=== PATIENT | female | born 1975 ===

== ENCOUNTER 2018-08-14 18:14 | Emergency (ER) | payer SELFPAY ==
[~2018-08-14] VITALS: Ht 160 cm; Wt 81.6 kg
--- OUTSIDE RECORDS SUMMARY | 2018-08-14 18:21 | XMS REPORT ---
Author Author SWETHA BERG Organization [facility] Address [address] [place] [address] Care Team Providers Care Automotive Collision Estimator Name Role Phone SWETHA BERG Unavailable PROBLEMS Unknown Problems ALLERGIES No Known Allergies ENCOUNTERS Encounter Location Date Diagnosis [facility] [id number] [place] [phone] Dec, Ingrown right greater toenail L60.0 [facility] [id number] [place] [phone] Dec, [facility] [id number] [place] [phone] Nov, Toe infection L08.9 [facility] [id number] [place] [phone] Dec, Vaginal itching L29.8 and Candidiasis of female genitalia B37.3 IMMUNIZATIONS No Known Immunizations SOCIAL HISTORY Never Assessed REASON FOR VISIT Pain (acute) right toe-LY Doss PLAN OF CARE Activity Details Follow Up 2 Weeks if not better Reason:toe pain VITAL SIGNS Height 57.6 in 2017-12-22 Weight 121.7 lbs 2017-12-22 Temperature 98.9 degrees Fahrenheit 2017-12-22 Heart Rate 80 bpm 2017-12-22 Respiratory Rate 18 2017-12-22 BMI 25.79 kg/m2 2017-12-22 Blood pressure systolic 126 mmHg 2017-12-22 Blood pressure diastolic 80 mmHg 2017-12-22 MEDICATIONS Medication Instructions Dosage Frequency Start Date End Date Duration Status Keflex 500 mg Orally every 12 hrs 1 capsule 12h Nov, Dec, 07 days Active RESULTS No Results PROCEDURES No Known procedures INSTRUCTIONS MEDICATIONS ADMINISTERED No Known Medications
--- OUTSIDE RECORDS SUMMARY | 2018-08-14 18:21 | XMS REPORT ---
Author Author JOSELIN HORNE Organization [facility] [place] Address [address] [place] [address] Care Team Providers Care Screen Printing Paster Name Role Phone COLEEN JOSELIN Unavailable PROBLEMS Unknown Problems ALLERGIES No Known Allergies ENCOUNTERS Encounter Location Date Diagnosis [facility] [place] [id number] [place] [phone] Dec, Ingrown right greater toenail L60.0 [facility] [place] [id number] [place] [phone] Dec, [facility] [place] [id number] [place] [phone] Nov, Toe infection L08.9 [facility] [id number] [place] [phone] Dec, Vaginal itching L29.8 and Candidiasis of female genitalia B37.3 IMMUNIZATIONS No Known Immunizations SOCIAL HISTORY Never Assessed REASON FOR VISIT Toenail removal ( rt toe) -- nola ceballos, consent signed PLAN OF CARE Activity Details Follow Up prn Reason: Future/Pending Procedure NAIL REMOVAL SINGLE (COMPLETE OR PARTIAL) VITAL SIGNS Height 57.6 in 2018-01-04 Weight 123.7 lbs 2018-01-04 Temperature 97.78 degrees Fahrenheit 2018-01-04 Heart Rate 70 bpm 2018-01-04 Respiratory Rate 18 2018-01-04 BMI 26.21 kg/m2 2018-01-04 Blood pressure systolic 120 mmHg 2018-01-04 Blood pressure diastolic 68 mmHg 2018-01-04 MEDICATIONS No Known Medications RESULTS No Results PROCEDURES Procedure Date Ordered Result Body Site REMOVAL OF NAIL PLATE January 04, 2018 INSTRUCTIONS MEDICATIONS ADMINISTERED No Known Medications
--- OUTSIDE RECORDS SUMMARY | 2018-08-14 18:21 | XMS REPORT ---
Author Author SWETHA BERG Organization [facility] Address [address] [place] [address] Care Team Providers Care Regional Tanker Truck Driver Name Role Phone SWETHA BERG Unavailable PROBLEMS Unknown Problems ALLERGIES No Information ENCOUNTERS Encounter Location Date Diagnosis [facility] [id number] [place] [phone] Dec, Ingrown right greater toenail L60.0 [facility] [id number] [place] [phone] Dec, [facility] [id number] [place] [phone] Nov, Toe infection L08.9 [facility] [id number] [place] [phone] Dec, Vaginal itching L29.8 and Candidiasis of female genitalia B37.3 IMMUNIZATIONS No Known Immunizations SOCIAL HISTORY Never Assessed REASON FOR VISIT check toe, need appt for toenail removal. Appointment scheduled for 01/04 with Jet Resendez, RN PLAN OF CARE VITAL SIGNS MEDICATIONS No Known Medications RESULTS No Results PROCEDURES No Known procedures INSTRUCTIONS MEDICATIONS ADMINISTERED No Known Medications
--- OUTSIDE RECORDS SUMMARY | 2018-08-14 18:21 | XMS REPORT ---
Author Author ABDIAZIZ VIDES [facility] Address [address] [place] [address] Care Team Providers Care Meter Tester Polyphase Name Role Phone ABDIAZIZ VIDES Unavailable PROBLEMS Unknown Problems ALLERGIES No Known Allergies ENCOUNTERS Encounter Location Date Diagnosis [place] [address] [phone] May, [facility] [address] [phone] May, Abdominal bloating R14.0 [place] [address] [phone] Dec, Ingrown right greater toenail L60.0 [place] [id number] [place] [phone] Dec, [place] [id number] [place] [phone] Nov, Toe infection L08.9 [place] [id number] [place] [phone] Dec, Vaginal itching L29.8 and Candidiasis of female genitalia B37.3 IMMUNIZATIONS No Known Immunizations SOCIAL HISTORY Never Assessed REASON FOR VISIT reports feeling bloated et a hard area in her RUG. denies pain...reports burning. been like this for 2 days. denies pain with intercourse. last BM was yesterday et normal for her. also reports this burning comes et goes. did eat a shake yesterday...felt better afterwards. doesnt coorelate this burning with food. PLAN OF CARE Activity Details Follow Up 2 Weeks,prn Reason: VITAL SIGNS Height 57.6 in 2018-06-01 Weight 129.6 lbs 2018-06-01 Temperature 97.3 degrees Fahrenheit 2018-06-01 Heart Rate 80 bpm 2018-06-01 Respiratory Rate 20 2018-06-01 BMI 27.46 kg/m2 2018-06-01 Blood pressure systolic 126 mmHg 2018-06-01 Blood pressure diastolic 74 mmHg 2018-06-01 MEDICATIONS Medication Instructions Dosage Frequency Start Date End Date Duration Status Ranitidine HCl 150 MG Orally Once a day 1 capsule at bedtime 24h May, 30 day(s) Active RESULTS Name Result Date Reference Range UA LONG DIP (IN HOUSE) 2018-06-01 Lot # [id number] Exp date 2018 Clarity clear Color yellow Odor none GLU negative COLE negative KET negative SG 1.020 BLO trace pH 7.5 Protein negative URO 0.2 NIT negative MARIA GUADALUPE negative Lot # [id number] Exp date may 2018 PROCEDURES Procedure Date Ordered Result Body Site URINALYSIS, AUTO, W/O SCOPE Jun 01, 2018 INSTRUCTIONS MEDICATIONS ADMINISTERED No Known Medications MEDICAL (GENERAL) HISTORY Type Description Date Surgical History 2005, 2007 Hospitalization History post surgeries
--- NOTE | 2018-08-14 20:14 | ED Abdominal Pain ---
General Chief Complaint: Abdominal/GI Problems Stated Complaint: STOMACH PAIN Nursing Triage Note: ABDOMINAL PAIN WORSE TODAY STATS ON GOING FOR 3 MONTHS. Sepsis Screen: No Definite Risk Source of Information: Patient Exam Limitations: No Limitations History of Present Illness Date Seen by Provider: Aug 14, 2018 Time Seen by Provider: 20:13 Initial Comments 43-year-old female who presents to the emergency room with complaints of worsening right upper quadrant abdominal pain for the past 3 months. She was seen in May at [facility] and was placed on Nexium for heartburn. She denies any fever, nausea, vomiting, diarrhea, urinary symptoms, or trouble with her bowels. Timing/Duration: Other (3 months.) Location: [facility] Radiation: No Radiation Associated Symptoms: Denies Symptoms Allergies and Home Medications Allergies Coded Allergies: No Known Drug Allergies (Unverified , 08/14/18) Past Wfjzyag-Kzbjvo-Hpnyxp Hx Patient Social History Recent Foreign Travel: No Contact w/Someone Who Travel: No Recent Infectious Disease Expo: No Past Medical History Surgeries: Yes Section Physical Exam Vital Signs Vital Signs - First Documented 08/14/18 18:52 Temp 98.6 Pulse 68 Resp 20 B/P (MAP) 132/76 (94) Pulse Ox 98 O2 Delivery Room Air Capillary Refill : Less Than 3 Seconds Height/Weight/BMI Height: 5'3.00" Weight: 180lbs. oz. 81.705610ip; BMI Method:Estimated Progress/Results/Core Measures Results/Orders Lab Results Laboratory Tests Test 08/14/18 20:10 08/14/18 20:15 Range/Units Urine Color YELLOW Urine Clarity CLEAR Urine pH 6.5 5-9 Urine Specific [place] 1.015 L 1.016-1.022 Urine Protein NEGATIVE NEGATIVE Urine Glucose (UA) NEGATIVE NEGATIVE Urine Ketones NEGATIVE NEGATIVE Urine Nitrite NEGATIVE NEGATIVE Urine Bilirubin NEGATIVE NEGATIVE Urine Urobilinogen NORMAL NORMAL MG/DL Urine Leukocyte Esterase 2+ H NEGATIVE Urine RBC (Auto) NEGATIVE NEGATIVE Urine RBC NONE /HPF Urine WBC 0-2 /HPF Urine Squamous Epithelial Cells 25-50 H /HPF Urine Renal Epithelial Cells NONE /HPF Urine Crystals NONE /LPF Urine Bacteria MODERATE H /HPF Urine Casts NONE /LPF Urine Mucus NEGATIVE /LPF Urine Culture Indicated NO White Blood Count 10.8 4.3-11.0 10^3/uL Red Blood Count 4.64 4.35-5.85 10^6/uL Hemoglobin 12.1 11.5-16.0 G/DL Hematocrit 36 35-52 % Mean Corpuscular Volume 77 L 80-99 FL Mean Corpuscular Hemoglobin 26 25-34 PG Mean Corpuscular Hemoglobin Concent 34 32-36 G/DL Red Cell Distribution Width 14.3 10.0-14.5 % Platelet Count 328 130-400 10^3/uL Mean Platelet Volume 9.9 7.4-10.4 FL Neutrophils (%) (Auto) 78 H 42-75 % Lymphocytes (%) (Auto) 16 12-44 % Monocytes (%) (Auto) 5 0-12 % Eosinophils (%) (Auto) 1 0-10 % Basophils (%) (Auto) 0 0-10 % Neutrophils # (Auto) 8.5 H 1.8-7.8 X 10^3 Lymphocytes # (Auto) 1.7 1.0-4.0 X 10^3 Monocytes # (Auto) 0.6 0.0-1.0 X 10^3 Eosinophils # (Auto) 0.1 0.0-0.3 10^3/uL Basophils # (Auto) 0.0 0.0-0.1 10^3/uL Sodium Level 136 135-145 MMOL/L Potassium Level 3.9 3.6-5.0 MMOL/L Chloride Level 106 98-107 MMOL/L Carbon Dioxide Level 21 21-32 MMOL/L Anion Gap 9 5-14 MMOL/L Blood Urea Nitrogen 11 7-18 MG/DL Creatinine 0.73 0.60-1.30 MG/DL Estimat Glomerular Filtration Rate > 60 BUN/Creatinine Ratio 15 Glucose Level 115 H 70-105 MG/DL Calcium Level 9.8 8.5-10.1 MG/DL Corrected Calcium 9.5 8.5-10.1 MG/DL Total Bilirubin 0.3 0.1-1.0 MG/DL Aspartate Amino Transf (AST/SGOT) 26 5-34 U/L Alanine Aminotransferase (ALT/SGPT) 29 0-55 U/L Alkaline Phosphatase 85 40-136 U/L Total Protein 7.6 6.4-8.2 GM/DL Albumin 4.4 3.2-4.5 GM/DL Amylase Level 73 25-125 U/L Lipase 22 8-78 U/L My Alyssa Shah - SHAHZAD CAMPOS Comprehensive Metabolic Panel (2/16/19 20:10) Lipase (08/14/18 20:10) Amylase (08/14/18 20:10) Ua Culture If Indicated (08/14/18 20:10) Saline Lock/Iv-Start (08/14/18 20:10) Cbc With Automated Diff (08/14/18 20:10) Ct Abdomen/Pelvis W (08/14/18 20:10) Urine Bedside (08/14/18 20:19) Iohexol Injection (Omnipaque 350 Mg/Ml 1 (08/14/18 21:00) Contrast Received (Contrast Received) (08/14/18 21:00) Sodium Chloride Flush (Catheter Flush Sy (08/14/18 21:00) Ns (Ivpb) (Sodium Chloride 0.9% Ivpb Bag (08/14/18 21:00) Medications Given in ED Current Medications Medications Dose Ordered Sig/Kevin Route Start Time Stop Time Status Last Admin Dose Admin Iohexol 100 ml ONCE ONCE IV 08/14/18 21:00 08/14/18 21:01 DC 08/14/18 20:48 100 ML Sodium Chloride 10 ml NEEDED PRN IV 08/14/18 21:00 08/14/18 20:48 10 ML Sodium Chloride 100 ml ONCE ONCE IV 08/14/18 21:00 08/14/18 21:01 DC 08/14/18 20:48 80 ML Vital Signs/I&O 08/14/18 18:52 Temp 98.6 Pulse 68 Resp 20 B/P (MAP) 132/76 (94) Pulse Ox 98 O2 Delivery Room Air Blood Pressure Mean: 94 Progress Progress Note : Time: 22:07 Progress Note I have seen and evaluated the patient. I've informed her of her laboratory and imaging studies. I have consult with Dr. PATETRSON at this time and he wishes to have the patient clear liquid diet and pain medication until he sees the patient in his office on Thursday at 2 PM. The patient agrees with plan of care, plans for discharge, return precautions were given. Departure Impression Primary Impression: Dilated gallbladder Additional Impression: Right upper quadrant pain Disposition: HOME, SELF-CARE Condition: Stable/Unchanged Departure-Patient Inst. Decision time for Depature: 22:08 Referrals: [facility] Primary Care Physician DIOR PATTERSON MD Patient Instructions: Acute Abdomen (Belly Pain), Adult (DC) Add. Discharge Instructions: Take medications as directed. Follow-up with Dr. PATTERSON's office Thursday afternoon at 2 PM. Clear liquid diet until you see Dr. PATTERSON at this appointment. Return back to the emergency room for worsening symptoms or concerns as needed. All discharge instructions reviewed with patient and/or family. Voiced understanding. Scripts Hydrocodone Bit/Acetaminophen (Hydrocodone/Acetaminophen 5/325mg Tablet) 1 Tab Tab 1 EACH PO Q4-6HR PRN for PAIN-MODERATE MDD 10, #14 TAB Prov: SHAHZAD CAMPOS 08/14/18 SHAHZAD CAMPOS Aug 14, 2018 20:14
[2018-08-14 20:24] LABS: BASOPHILS % (AUTO) 0 % (0-10); EOSINOPHILS # (AUTO) 0.1 10^3/uL (0.0-0.3); EOSINOPHILS % (AUTO) 1 % (0-10); HEMATOCRIT 36 % (35-52); HEMOGLOBIN 12.1 G/DL (11.5-16.0); LYMPHOCYTES # (AUTO) 1.7 X 10^3 (1.0-4.0); LYMPHOCYTES % (AUTO) 16 % (12-44); MEAN CORPUSCULAR HEMOGLOBIN 26 PG (25-34); MEAN CORPUSCULAR HGB CONC 34 G/DL (32-36); MEAN CORPUSCULAR VOLUME 77 FL (80-99); MEAN PLATELET VOLUME 9.9 FL (7.4-10.4); MONOCYTES # (AUTO) 0.6 X 10^3 (0.0-1.0); MONOCYTES % (AUTO) 5 % (0-12); NEUTROPHILS # (AUTO) 8.5 X 10^3 (1.8-7.8); NEUTROPHILS % (AUTO) 78 % (42-75); PLATELET COUNT 328 10^3/uL (130-400); RED CELL DISTRIBUTION WIDTH 14.3 % (10.0-14.5); WHITE BLOOD COUNT 10.8 10^3/uL (4.3-11.0)
[2018-08-14 20:24] LABS: BILIRUBIN,URINE NEGATIVE (NEGATIVE); CLARITY,URINE CLEAR; COLOR,URINE YELLOW; GLUCOSE, URINE (UA) NEGATIVE (NEGATIVE); KETONES,URINE NEGATIVE (NEGATIVE); LEUKOCYTE ESTERASE ,URINE 2+ (NEGATIVE); NITRITE,URINE NEGATIVE (NEGATIVE); PH,URINE 6.5 (5-9); PROTEIN,URINE NEGATIVE (NEGATIVE); UROBILINOGEN,URINE NORMAL (NORMAL)
[2018-08-14 20:42] LABS: ALANINE AMINOTRANSFERASE 29 U/L (0-55); ALBUMIN 4.4 GM/DL (3.2-4.5); ALKALINE PHOSPHATASE 85 U/L (40-136); AMYLASE 73 U/L (25-125); BILIRUBIN,TOTAL 0.3 MG/DL (0.1-1.0); BUN/CREATININE RATIO 15; CALCIUM 9.8 MG/DL (8.5-10.1); CARBON DIOXIDE 21 MMOL/L (21-32); CHLORIDE 106 MMOL/L (98-107); CREATININE SERUM 0.73 MG/DL (0.60-1.30); GFR ESTIMATED > 60; GLUCOSE 115 MG/DL (70-105); LIPASE 22 U/L (8-78); POTASSIUM 3.9 MMOL/L (3.6-5.0); SODIUM 136 MMOL/L (135-145); TOTAL PROTEIN 7.6 GM/DL (6.4-8.2)
[2018-08-14 20:52] LABS: BACTERIA,URINE MODERATE /HPF; SQUAMOUS EPITHELIAL CELL,UR 25-50 /HPF; WBC,URINE 0-2 /HPF
[2018-08-14] MEDS ORDERED: RECEIVED CONTRAST (Hold Metformin) IV SCH (21:00)
[2018-08-14] MEDS ORDERED: NS 100 ML (IVPB) BAG IV ONE (21:00)
[2018-08-14] MEDS ORDERED: CATHETER FLUSH 10 ML SYR IV PRN (21:00)
[2018-08-14] MEDS ORDERED: IOHEXOL 350 MG/ML 100 ML (OMNIPAQUE 350) VIAL IV ONE (21:00)
--- NOTE | 2018-08-14 21:17 | Diagnostic Imaging Report ---
PROCEDURE: CT abdomen and pelvis with contrast. TECHNIQUE: Multiple contiguous axial images were obtained through the abdomen and pelvis after administration of intravenous contrast. INDICATION: Abdominal pain for three months. COMPARISON: None available. FINDINGS: Lower chest: The lung bases are clear. No pericardial or pleural effusion. Peritoneum: No free intraperitoneal air or fluid. Liver and biliary system: The liver is normal. Gallbladder is distended without radiopaque gallstones. No biliary duct dilatation. Spleen and Pancreas: Spleen is normal. The pancreas enhances normally without mass lesion or peripancreatic inflammatory changes. Adrenals: Normal. tract: The kidneys enhance normally without suspicious mass or obstruction. Urinary bladder is distended without wall thickening. Uterus and ovaries are physiologic in appearance. GI tract: Stomach is filled with fluid and air and there is no wall thickening. No bowel obstruction. No pericolonic inflammatory changes. Normal appendix. Vasculature and Lymph nodes: Normal caliber aorta. No abdominal or pelvic lymphadenopathy. Musculoskeletal: No concerning osseous lesion. IMPRESSION: 1. Distended gallbladder could be physiologic. Correlation for right upper quadrant tenderness is advised. 2. Otherwise, no acute obstructive or inflammatory process in the abdomen or pelvis. Dictated by: Dictated on workstation # [id number]
[2018-08-14] MEDS ORDERED: ACHD5005 PO (22:10)
[2018-08-14 22:33] VITALS: BP 139/83
== END 2018-08-14 22:40 | disposition home or self-care (01) ==
LOC: ER 18:17
DX: K82.8 Other specified diseases of gallbladder (principal)
CPT/HCPCS: 36415; 74177; 80053; 81000; 82150; 83690; 84703; 85025

== ENCOUNTER 2018-08-19 05:33 | Outpatient (CLI) | payer SELFPAY ==
[~2018-08-19] VITALS: Ht 160 cm; Wt 58.5 kg
[~2018-08-19 05:33] MED LIST: ACHD5005 PO
== END 2018-08-19 14:01 ==
LOC: PREOP 05:33
PROVIDERS: ATTEND Surgery
DX: Z01.818 Encounter for other preprocedural examination (principal)

== ENCOUNTER 2018-08-24 09:10 | Day surgery (SDC) | payer OTHER ==
[~2018-08-24] VITALS: Ht 160 cm; Wt 56.4 kg
[2018-08-24] MEDS ORDERED: ONDANSETRON 4 MG/2 ML (SDV) Z0FRAN ONE (09:16)
[2018-08-24] MEDS ORDERED: proPOfol 200 MG/20 ML (DIPRIVAN) VIAL IV ONE (09:16)
[2018-08-24] MEDS ORDERED: ROCURONIUM 10 MG/ML 5 ML SYRINGE IV ONE (09:16)
[2018-08-24] MEDS ORDERED: DEXAMETHASONE 10 MG/ML (DECADRON) 1 ML VIAL ONE (09:16)
[2018-08-24] MEDS ORDERED: LIDOCAINE PF 2% 5 ML (XYLOCAINE) VIAL ONE (09:16)
[2018-08-24] MEDS ORDERED: GLYCOPYRROLATE 0.2 MG/ML (ROBINUL) 2 ML VIAL ONE (09:16)
[2018-08-24] MEDS ORDERED: NEOSTIGMINE 1 MG/ML 5 ML SYRINGE ONE (09:16)
[2018-08-24] MEDS ORDERED: fentaNYL INJECTION 100 MCG/2 ML AMP ONE (09:17)
[2018-08-24] MEDS ORDERED: MIDAZOLAM 2 MG/2 ML (VERSED) VIAL ONE (09:17)
--- NOTE | 2018-08-24 09:22 | Progress Note-Pre Operative ---
Pre-Operative Progress Note H&P Reviewed The H&P was reviewed, patient examined and no changes noted. Date Seen by Provider: Aug 24, 2018 Time Seen by Provider: 09:20 Date H&P Reviewed: Aug 24, 2018 Time H&P Reviewed: 08:45 Pre-Operative Diagnosis: Chronic acalculous cholecystitis MILES MINER APRN Aug 24, 2018 09:22
--- NOTE | 2018-08-24 09:25 | Discharge Inst-Surgical ---
D/C Lap Instructions-KIDO New, Converted, or Re-Newed RX: RX on Chart Follow Up Appt in 2 weeks Activity as tolerated No driving for 24 hours No [address] while on pain medications Incentive Spirometry use every 2 hours while awake Regular Diet Symptoms to Report: Fever over 101 degree F, Nausea/Vomiting Infection Signs and Symptoms to report: Increased redness, Foul odor of wound, Increased drainage Bathing instructions: May shower Operative Area Clean/Dry; Keep incision clean/dry If any problems/questions: Contact your physician or go to Emergency Room IMLES MINER APRN Aug 24, 2018 09:25
[2018-08-24] MEDS ORDERED: HYDR-3816 PO (09:26)
[2018-08-24 09:30] VITALS: BP 122/91
[2018-08-24] MEDS ORDERED: HYDROcodone/APAP 5 MG/325 MG (LORTAB) TAB PO ONE (09:30)
[2018-08-24] MEDS ORDERED: morphine INJ 10 MG/ML 1ML (SYR OR VIAL) IVP PRN (09:30)
[2018-08-24] MEDS ORDERED: ONDANSETRON 4 MG/2 ML (SDV) Z0FRAN IVP PRN ×2 (09:30→11:45)
[2018-08-24] MEDS ORDERED: ACETAMINOPHEN 325 MG TABLET PO PRN (09:30)
[2018-08-24] MEDS ORDERED: ceFAZolin INJECTION 1,000 MG in WATER (STERILE) FOR INJECTION 10 ML IV ONE (09:30)
[2018-08-24] MEDS ORDERED: CATHETER FLUSH 10 ML SYR IV PRN (09:45)
[2018-08-24] MEDS: LACTATED RINGERS 1,000 ML IV PRN ×2 (09:45→11:20)
[2018-08-24 09:48] LABS: BASOPHILS % (AUTO) 0 % (0-10); EOSINOPHILS # (AUTO) 0.2 10^3/uL (0.0-0.3); EOSINOPHILS % (AUTO) 2 % (0-10); HEMATOCRIT 37 % (35-52); HEMOGLOBIN 12.7 G/DL (11.5-16.0); LYMPHOCYTES % (AUTO) 23 % (12-44); MEAN CORPUSCULAR HEMOGLOBIN 27 PG (25-34); MEAN CORPUSCULAR HGB CONC 34 G/DL (32-36); MEAN CORPUSCULAR VOLUME 78 FL (80-99); MEAN PLATELET VOLUME 10.1 FL (7.4-10.4); MONOCYTES # (AUTO) 0.7 X 10^3 (0.0-1.0); MONOCYTES % (AUTO) 8 % (0-12); NEUTROPHILS # (AUTO) 5.9 X 10^3 (1.8-7.8); NEUTROPHILS % (AUTO) 68 % (42-75); PLATELET COUNT 337 10^3/uL (130-400); RED CELL DISTRIBUTION WIDTH 14.6 % (10.0-14.5); WHITE BLOOD COUNT 8.8 10^3/uL (4.3-11.0)
[2018-08-24] MEDS ORDERED: BUP/EPI 0.5% 1:200,000 (SENSORCAINE) 30 ML VIAL ONE (10:50)
[2018-08-24] MEDS ORDERED: SEVOFLURANE (ULTANE) 15 ML INHAL SOLN ONE (11:27)
[2018-08-24] MEDS ORDERED: morphine INJ 10 MG/ML 1ML (SYR OR VIAL) IVP ONE (11:45)
[2018-08-24] MEDS ORDERED: HYDROmorphone 2 MG/ML VIAL (DILAUDID) IV ONE (11:45)
[2018-08-24 12:40] VITALS: BP 128/87
--- NOTE | 2018-08-24 12:42 | Progress Note-Post Operative ---
Post-Operative Progess Note Surgeon (s)/Lab Support Tech (s) Surgeon DIOR PATTERSON MD Lab Support Tech: lenora gore COUNTER WAITRESS/WAITER Pre-Operative Diagnosis Chronic acalculous cholecystitis Post-Operative Diagnosis chronic calculous cholecystitis. Procedure & Operative Findings Date of Procedure 08/24/18 Procedure Performed/Findings laparoscopic cholecystectomy. Anesthesia Type GET Estimated Blood Loss Estimated blood loss (mL): minimal Specimens/Packing Specimens Removed gallbladder DIOR PATTERSON MD Aug 24, 2018 12:42
--- NOTE | 2018-08-24 13:08 | Anesthesia-General Post-Op ---
General Patient Condition Mental Status/LOC: Same as Preop Cardiovascular: Satisfactory Nausea/Vomiting: Absent Respiratory: Satisfactory Pain: Controlled Complications: Absent Post Op Complications Complications None Follow Up Care/Instructions Patient Instructions None needed. Anesthesia/Patient Condition Patient Condition Patient is doing well, no complaints, stable vital signs, no apparent adverse anesthesia problems. No complications reported per nursing. LEEANNA GONGORA CRNA Aug 24, 2018 13:08
[2018-08-24 13:10] VITALS: BP 127/77
[2018-08-24 13:54] VITALS: BP 132/81
[2018-08-24 13:55] VITALS: BP 132/81
--- NOTE | 2018-08-24 16:13 | OPERATIVE REPORT ---
DATE OF SERVICE: 08/24/2018 PREOPERATIVE DIAGNOSIS: Symptomatic chronic acalculous cholecystitis. POSTOPERATIVE DIAGNOSIS: Chronic calculous cholecystitis. PROCEDURE: Laparoscopic cholecystectomy. SURGEON: Dior Patterson MD LINSEED CAKE TRIMMER: Rai Shaver APRN. ANESTHESIA: General endotracheal. ESTIMATED BLOOD LOSS: Minimal. FINDINGS: Dilated gallbladder with large solitary gallstone. DISPOSITION: The patient tolerated the procedure well. INDICATIONS: The patient is a 43-year-old female who has had intermittent episodes of pain usually in the right upper abdominal quadrant. Approximately 2 weeks ago, she had a much more severe episode after eating a meal and this was followed by nausea and vomiting as well as pain in the right upper abdominal quadrant with radiation towards the back. She was seen in the Emergency Department and a CT scan was performed, which did show a dilated gallbladder. Her pain improved with medication and she was seen in the office and her signs and symptoms were initially most consistent with a chronic acalculous cholecystitis; however, after examining the gallbladder, she had gallstones. DESCRIPTION OF PROCEDURE: The patient was brought to the operating room, laid supine on the table. After adequate IV pain and sedative medications and general endotracheal intubation, the abdomen was prepped and draped in standard surgical fashion. A 0.5% Marcaine with epinephrine was then used to anesthetize the overlying skin in the left upper abdominal quadrant and a small transverse skin incision made using a 15 blade. An 0 silk suture was applied to the medial aspect of the incision for retraction and a Veress needle inserted with a low opening pressure of 0 mmHg and the abdomen was then insufflated to 15 mmHg pressure. The Veress needle removed and a 5 mm Xcel trocar placed followed by a 5 mm 45-degree angle laparoscope visualizing the peritoneal cavity. The stomach, liver, omentum, small bowel appeared normal. The gallbladder was dilated with no gallbladder wall thickening identified. Under direct visualization, we then proceed to place a supraumbilical 10 mm port after the skin and peritoneal lining were anesthetized using 0.5% Marcaine with epinephrine and a transverse skin incision made using a 15 blade. In a similar manner, a right upper abdominal quadrant 5 mm port was placed. The patient was then placed in reverse Trendelenburg position as well as plane right side up, left side down. The fundus of the gallbladder was then retracted anteriorly and superiorly. The hepatoduodenal ligament was then opened using blunt dissection as well as electrocautery on the hook instrument. The entire critical view of safety was identified including the triangle of Calot as well as the cystic duct and artery as the only two structures going into the gallbladder as well as the cystic plate behind the proximal liver. A timeout was then taken and the cystic duct and artery were clipped proximally, distally and cut with EndoShears. The gallbladder was then dissected off of the liver bed using cautery on hook instrument with visualization of good hemostasis as well as no leaking ducts of Luschka. The gallbladder was removed through the 10 mm port site using an EndoCatch bag. The 10 mm port site fascia and peritoneum were then closed under direct visualization using a Holger-Filippo device and 0 Vicryl suture. The abdomen was desufflated and remaining ports removed. All skin incisions were closed using 4-0 Monocryl running subcuticular sutures. Wounds were then cleaned and covered with Dermabond. The patient tolerated the procedure well. We will start IV normal pain medications as well as a clear liquid diet. Once she is tolerating clears, has good pain control with oral pain medication and is ambulating well, we will discharge her home. Job ID: [id number] DocumentID: [id number] Dictated Date: 08/24/2018 11:31:48 Fiscal Manager Date: 08/24/2018 16:12:09 Dictated By: DIOR PATTESRON MD
== END 2018-08-24 13:55 | disposition home or self-care (01) ==
LOC: SDC 09:10
PROVIDERS: ATTEND Surgery
DX: K80.10 Calculus of gallbladder with chronic cholecystitis without obstruction (principal)
CPT/HCPCS: 36415; 84703; 85025; 87081; 94664

== ENCOUNTER 2021-08-08 16:52 | Emergency (ER) | payer BC ==
[~2021-08-08] VITALS: Ht 157.5 cm; Wt 55.8 kg
[~2021-08-08 16:52] MED LIST changes: +HYDR-34 PO
[2021-08-08 17:00] VITALS: BP 120/92
[2021-08-08] MEDS ORDERED: LACTATED RINGERS 1,000 ML IV SCH (17:15)
[2021-08-08] MEDS ORDERED: ONDANSETRON 4 MG/2 ML (SDV) Z0FRAN IVP ONE (17:15)
[2021-08-08 17:21] LABS: BASOPHILS % (AUTO) 0 % (0-10); EOSINOPHILS % (AUTO) 0 % (0-10); HEMATOCRIT 39 % (35-52); HEMOGLOBIN 12.8 g/dL (11.5-16.0); LYMPHOCYTES # (AUTO) 0.7 10^3/uL (1.0-4.0); LYMPHOCYTES % (AUTO) 10 % (12-44); MEAN CORPUSCULAR HEMOGLOBIN 25 pg (25-34); MEAN CORPUSCULAR HGB CONC 33 g/dL (32-36); MEAN CORPUSCULAR VOLUME 78 fL (80-99); MEAN PLATELET VOLUME 10.2 fL (9.0-12.2); MONOCYTES # (AUTO) 0.5 10^3/uL (0.0-1.0); MONOCYTES % (AUTO) 7 % (0-12); NEUTROPHILS # (AUTO) 5.9 10^3/uL (1.8-7.8); NEUTROPHILS % (AUTO) 83 % (42-75); PLATELET COUNT 228 10^3/uL (130-400); WHITE BLOOD COUNT 7.1 10^3/uL (4.3-11.0)
--- NOTE | 2021-08-08 17:25 | ED GI ---
General Chief Complaint: Abdominal/GI Problems Stated Complaint: ABD PAIN/VOMITING Source of Information: Patient Exam Limitations: No Limitations (GAIL GRANGER APRN) History of Present Illness Date Seen by Provider: Aug 08, 2021 Time Seen by Provider: 17:24 Initial Comments To ER with reports of yellowish vaginal discharge for about 2 weeks. Today she developed some lower abdominal pain nausea vomiting and diarrhea. Timing/Duration: 1-2 Days Severity/Quality: Cramping Location: RUQ Radiation: No Radiation Activities at Onset: None Associated Symptoms: Nausea/Vomiting (GAIL GRANGER APRN) Allergies and Home Medications Allergies Coded Allergies: No Known Drug Allergies (Unverified , 08/19/18) Patient Home Medication List Home Medication List Reviewed: Yes (GAIL GRANGER APRN) Hydrocodone Bit/Acetaminophen (HYDROcodone/APAP 7.5/325 TAB) 1 Each Tablet, 1-2 TAB PO Q4H Prescribed by: MILES MINER on 08/24/18 0926 Metronidazole (Metronidazole) 500 Mg Tablet, 500 MG PO BID Prescribed by: GAIL GRANGER on 08/08/21 1908 Review of Systems Review of Systems Constitutional: see HPI EENTM: No Symptoms Reported Respiratory: No Symptoms Reported Cardiovascular: No Symptoms Reported Gastrointestinal: See HPI, Abdominal Pain, Diarrhea, Nausea, Vomiting Genitourinary: See HPI, Discharge Musculoskeletal: no symptoms reported Skin: no symptoms reported Psychiatric/Neurological: No Symptoms Reported Endocrine: No Symptoms Reported Hematologic/Lymphatic: No Symptoms Reported (GAIL GRANGER APRN) Past Hfwgova-Mgfauy-Vqsjdh Hx Seasonal Allergies Seasonal Allergies: No (GAIL GRANGER APRN) Past Medical History Surgeries: Yes Section Respiratory: No Cardiac: No Neurological: No Sexually Transmitted Disease: No HIV/AIDS: No Genitourinary: No Gastrointestinal: Yes Gall Bladder Disease Musculoskeletal: No Endocrine: No HEENT: No Loss of Vision: Denies Hearing Impairment: Denies Cancer: No Psychosocial: No Integumentary: No Blood Disorders: No Adverse Reaction/Blood Tranf: No (N/A) (GAIL GRANGER APRN) Physical Exam Vital Signs Vital Signs - First Documented 08/08/21 17:00 Temp 36.6 Pulse 109 Resp 17 B/P (MAP) 120/92 (101) O2 Delivery Room Air (JENNY GAONA MD) Vital Signs Capillary Refill : (GAIL GRANGER APRN) Height/Weight/BMI Height: 5'3.00" Weight: 124lbs. 6.0oz. 56.802448oh; 22.0 BMI Method:Estimated General Appearance: WD/WN, no apparent distress HEENT: PERRL/EOMI, normal ENT inspection Respiratory: no respiratory distress, no accessory muscle use Cardiovascular: regular rate, rhythm, no murmur Gastrointestinal: normal bowel sounds, soft, tenderness (Little suprapubic tenderness) Extremities: normal range of motion, non-tender Neurologic/Psychiatric: alert, normal mood/affect, oriented x 3 Skin: normal color, warm/dry (GAIL GRANGER APRN) Progress/Results/Core Measures Results/Orders Lab Results Laboratory Tests Test 08/08/21 17:14 08/08/21 17:55 08/08/21 18:35 Range/Units White Blood Count 7.1 4.3-11.0 10^3/uL Red Blood Count 5.05 3.80-5.11 10^6/uL Hemoglobin 12.8 11.5-16.0 g/dL Hematocrit 39 35-52 % Mean Corpuscular Volume 78 L 80-99 fL Mean Corpuscular Hemoglobin 25 25-34 pg Mean Corpuscular Hemoglobin Concent 33 32-36 g/dL Red Cell Distribution Width 14.4 10.0-14.5 % Platelet Count 228 130-400 10^3/uL Mean Platelet Volume 10.2 9.0-12.2 fL Immature Granulocyte % (Auto) 0 % Neutrophils (%) (Auto) 83 H 42-75 % Lymphocytes (%) (Auto) 10 L 12-44 % Monocytes (%) (Auto) 7 0-12 % Eosinophils (%) (Auto) 0 0-10 % Basophils (%) (Auto) 0 0-10 % Neutrophils # (Auto) 5.9 1.8-7.8 10^3/uL Lymphocytes # (Auto) 0.7 L 1.0-4.0 10^3/uL Monocytes # (Auto) 0.5 0.0-1.0 10^3/uL Eosinophils # (Auto) 0.0 0.0-0.3 10^3/uL Basophils # (Auto) 0.0 0.0-0.1 10^3/uL Immature Granulocyte # (Auto) 0.0 0.0-0.1 10^3/uL Prothrombin Time 14.1 12.2-14.7 SEC INR Comment 1.1 0.8-1.4 Sodium Level 133 L 135-145 MMOL/L Potassium Level 3.0 L 3.6-5.0 MMOL/L Chloride Level 104 98-107 MMOL/L Carbon Dioxide Level 17 L 21-32 MMOL/L Anion Gap 12 5-14 MMOL/L Blood Urea Nitrogen 6 L 7-18 MG/DL Creatinine 0.68 0.60-1.30 MG/DL Estimat Glomerular Filtration Rate 110 BUN/Creatinine Ratio 9 Glucose Level 114 H 70-105 MG/DL Calcium Level 8.6 8.5-10.1 MG/DL Corrected Calcium 8.3 L 8.5-10.1 MG/DL Total Bilirubin 0.6 0.1-1.0 MG/DL Aspartate Amino Transf (AST/SGOT) 55 H 5-34 U/L Alanine Aminotransferase (ALT/SGPT) 63 H 0-55 U/L Alkaline Phosphatase 106 40-136 U/L Total Protein 7.9 6.4-8.2 GM/DL Albumin 4.4 3.2-4.5 GM/DL Serum Test, Qualitative NEGATIVE NEGATIVE Urine Color YELLOW Urine Clarity CLEAR Urine pH 6.0 5-9 Urine Specific [place] <=1.005 1.016-1.022 Urine Protein NEGATIVE NEGATIVE Urine Glucose (UA) NEGATIVE NEGATIVE Urine Ketones NEGATIVE NEGATIVE Urine Nitrite NEGATIVE NEGATIVE Urine Bilirubin NEGATIVE NEGATIVE Urine Urobilinogen 0.2 < = 1.0 MG/DL Urine Leukocyte Esterase NEGATIVE NEGATIVE Urine RBC (Auto) NEGATIVE NEGATIVE Urine RBC NONE /HPF Urine WBC RARE /HPF Urine Squamous Epithelial Cells 2-5 /HPF Urine Crystals NONE /LPF Urine Bacteria FEW H /HPF Urine Casts NONE /LPF Urine Mucus NEGATIVE /LPF Urine Culture Indicated YES (JENNY GAONA MD) Medications Given in ED Current Medications Medications Dose Ordered Sig/Kevin Route Start Time Stop Time Status Last Admin Dose Admin Iohexol 100 ml ONCE ONCE IV 08/08/21 18:30 08/08/21 18:31 DC 08/08/21 18:29 70 ML Metronidazole 500 mg ONCE ONCE PO 08/08/21 19:15 08/08/21 19:16 DC 08/08/21 19:21 500 MG Ondansetron HCl 8 mg ONCE ONCE IVP 08/08/21 17:15 08/08/21 17:16 DC 08/08/21 17:22 8 MG Sodium Chloride 100 ml ONCE ONCE IV 08/08/21 18:30 08/08/21 18:31 DC 08/08/21 18:29 80 ML (JENNY GAONA MD) Vital Signs/I&O 08/08/21 17:00 Temp 36.6 Pulse 109 Resp 17 B/P (MAP) 120/92 (101) O2 Delivery Room Air 08/09/21 00:00 Intake Total 1000 ml Balance 1000 ml (JENNY GAONA MD) Departure Communication (Admissions) Family Conversation NAME: [facility] REC#: [id number] PT STATUS: REG ER : 1975 PHYSICIAN: GAIL GRANGER APRN ADMIT DATE: 08/08/21/ER Draft Date of Exam:08/08/21 CT ABDOMEN/PELVIS W PROCEDURE: CT abdomen and pelvis with contrast. TECHNIQUE: Multiple contiguous axial images were obtained through the abdomen and pelvis after administration of intravenous contrast. Auto Exposure Controls were utilized during the CT exam to meet ALARA standards for radiation dose reduction. All CT scans use one or more of the following dose optimizing techniques: automated exposure control, MA and/or KvP adjustment based on patient size and exam type or iterative reconstruction. INDICATION: Abdominal pain. COMPARISON: 08/14/2018. FINDINGS: Focal emphysematous changes within the right lower lobe and right middle lobe are again identified. Cholecystectomy. The liver and spleen are unremarkable. The adrenal glands are unremarkable. The pancreas is unremarkable. The kidneys are unremarkable. No aneurysmal dilatation of the abdominal aorta. The appendix is unremarkable. Tiny fat-containing umbilical hernia. 2 cm irregular density is identified within the right gluteal subcutaneous tissues, new from the prior examination. The urinary bladder is unremarkable. The uterus and adnexal structures are unremarkable for age. The colon appears relatively fluid-filled. No evidence of bowel obstruction or pneumatosis. No significant adenopathy, free air or free fluid within the abdomen or pelvis. No acute osseous abnormality. IMPRESSION: 1. New 2 cm irregular density within the right gluteal subcutaneous tissues. This could relate to a small region of contusion. Alternatively, this could relate to a recent injection site. 2. Fluid-filled colon, which can be seen with diarrhea. No evidence of bowel obstruction. 3. Interval cholecystectomy since 2018. 4. Additional findings as above. Dictated on workstation # [id number] Dict: 08/08/21 183 Trans: 08/08/21 184 PJE [id number] Interpreted by: KASSY NOVAK MD Electronically signed by: Pelvic exam done with PUSHPA Carreno at the bedside. There is some whitish discharge within the vaginal vault. otherwise normal. (GAIL GRANGER APRN) Impression Primary Impression: Gastroenteritis Additional Impression: Bacterial vaginosis Disposition: HOME, SELF-CARE Condition: Stable Departure-Patient Inst. Decision time for Depature: 19:04 (GAIL GRANGER APRN) Referrals: [facility] [place] (PCP/Family) Primary Care Physician Patient Instructions: Bacterial Vaginosis ED Add. Discharge Instructions: 1. Take the antibiotic as directed. Nausea medication as needed. Follow-up with your doctor next week. All discharge instructions reviewed with patient and/or family. Voiced understanding. Scripts Metronidazole (Metronidazole) 500 Mg Tablet 500 MG PO BID, #14 TAB Prov: GAIL GRANGER APRN 08/08/21 Work/School Note: Work Release Form Date Seen in the Emergency Department: Aug 08, 2021 Return to Work: Aug 10, 2021 ATTENDING PHYSICIAN NOTE: I was physically present as attending physician in the emergency department during the care of this patient, but I was not directly involved in the decision making or delivery of care for this patient. (JENNY GAONA MD) GAIL GRANGER APRN Aug 08, 2021 17:25 JENNY GAONA MD Aug 09, 2021 00:17
[2021-08-08 17:29] LABS: ALBUMIN 4.4 GM/DL (3.2-4.5)
[2021-08-08 17:30] LABS: CALCIUM 8.6 MG/DL (8.5-10.1)
[2021-08-08 17:31] LABS: TOTAL PROTEIN 7.9 GM/DL (6.4-8.2)
[2021-08-08 17:33] LABS: BILIRUBIN,TOTAL 0.6 MG/DL (0.1-1.0)
[2021-08-08 17:35] LABS: CREATININE SERUM 0.68 MG/DL (0.60-1.30)
[2021-08-08 17:40] LABS: INR 1.1 (0.8-1.4); PROTHROMBIN TIME PATIENT 14.1 SEC (12.2-14.7)
[2021-08-08 18:02] LABS: BILIRUBIN,URINE NEGATIVE (NEGATIVE); CLARITY,URINE CLEAR; COLOR,URINE YELLOW; GLUCOSE, URINE (UA) NEGATIVE (NEGATIVE); KETONES,URINE NEGATIVE (NEGATIVE); LEUKOCYTE ESTERASE ,URINE NEGATIVE (NEGATIVE); NITRITE,URINE NEGATIVE (NEGATIVE); PROTEIN,URINE NEGATIVE (NEGATIVE)
[2021-08-08 18:29] LABS: BACTERIA,URINE FEW /HPF; WBC,URINE RARE /HPF
[2021-08-08] MEDS ORDERED: IOHEXOL 350 MG/ML 100 ML (OMNIPAQUE 350) VIAL IV ONE (18:30)
[2021-08-08] MEDS ORDERED: NS 100 ML (IVPB) BAG IV ONE (18:30)
[2021-08-08] MEDS ORDERED: HOLD METFORMIN - RECEIVED CONTRAST 20 ML VIAL IV SCH (18:30)
--- NOTE | 2021-08-08 18:41 | Diagnostic Imaging Report ---
PROCEDURE: CT abdomen and pelvis with contrast. TECHNIQUE: Multiple contiguous axial images were obtained through the abdomen and pelvis after administration of intravenous contrast. Auto Exposure Controls were utilized during the CT exam to meet ALARA standards for radiation dose reduction. All CT scans use one or more of the following dose optimizing techniques: automated exposure control, MA and/or KvP adjustment based on patient size and exam type or iterative reconstruction. INDICATION: Abdominal pain. COMPARISON: 08/14/2018. FINDINGS: Focal emphysematous changes within the right lower lobe and right middle lobe are again identified. Cholecystectomy. The liver and spleen are unremarkable. The adrenal glands are unremarkable. The pancreas is unremarkable. The kidneys are unremarkable. No aneurysmal dilatation of the abdominal aorta. The appendix is unremarkable. Tiny fat-containing umbilical hernia. 2 cm irregular density is identified within the right gluteal subcutaneous tissues, new from the prior examination. The urinary bladder is unremarkable. The uterus and adnexal structures are unremarkable for age. The colon appears relatively fluid-filled. No evidence of bowel obstruction or pneumatosis. No significant adenopathy, free air or free fluid within the abdomen or pelvis. No acute osseous abnormality. IMPRESSION: 1. New 2 cm irregular density within the right gluteal subcutaneous tissues. This could relate to a small region of contusion. Alternatively, this could relate to a recent injection site. 2. Fluid-filled colon, which can be seen with diarrhea. No evidence of bowel obstruction. 3. Interval cholecystectomy since 2019. 4. Additional findings as above. Dictated by: Dictated on workstation # [id number]
[2021-08-08] MEDS ORDERED: METR-145 PO (19:08)
[2021-08-08] MEDS ORDERED: RX-ONDANSETRON 4 MG ODT (ZOFRAN) PPK #4 PO STA (19:13)
[2021-08-08] MEDS ORDERED: metroNIDAZOLE 500 MG (FLAGYL) TAB PO ONE (19:15)
== END 2021-08-08 19:31 | disposition home or self-care (01) ==
LOC: EDUNIT# 16:52 → ER 16:55
DX: K52.9 Noninfective gastroenteritis and colitis, unspecified (principal); N76.0 Acute vaginitis; Z32.02 Encounter for pregnancy test, result negative
CPT/HCPCS: 36415; 74177; 80053; 81000; 84703; 85025; 85610; 87070; 87088; 87205; 87210; 87491; 87591; 99283